=== PATIENT | male | born 1985 | race African-American/Black ===

== ENCOUNTER 2017-11-06 07:26 | Emergency (ER) | payer MEDICAID ==
[~2017-11-06] VITALS: Ht 190.5 cm; Wt 73.0 kg
[2017-11-06 08:40] VITALS: BP 128/86
[2017-11-06] MEDS ORDERED: KETOROLAC 60MG/2ML VIAL IM ONE (08:45)
== END 2017-11-06 09:39 | disposition home or self-care (01) ==
LOC: ER 07:41
DX: K04.7 Periapical abscess without sinus (principal)
CPT/HCPCS: 99283